=== PATIENT | female | born 2000 | race Caucasian/White ===

== ENCOUNTER 2022-12-21 21:55 | Inpatient (IN) | payer BC, MEDICAID ==
[2022-12-21] MEDS ORDERED: Lactated Ringers 1,000 ML IV ONE (22:01)
[2022-12-21] MEDS ORDERED: PITOCIN 30 UNITS/ LR 500 ML 500 ML IV ONE (22:01)
[2022-12-21] MEDS ORDERED: STADOL 2 MG IV PRN (22:06)
[2022-12-21] MEDS ORDERED: Zofran 4 MG/2 ML VIAL IV PRN (22:06)
[2022-12-21] MEDS ORDERED: PITOCIN 30 UNITS/ LR 500 ML 30 UNITS/500 ML PLAST..BAG IV SCH (22:15)
[2022-12-21] MEDS ORDERED: Anucort-HC SUPPOSITORY PR PRN (22:17)
[2022-12-21] MEDS ORDERED: NORCO 5/325 MG PO PRN (22:17)
[2022-12-21] MEDS ORDERED: LANSINOH 40 GM TOP PRN (22:17)
[2022-12-21] MEDS ORDERED: TUCKS TP PRN (22:17)
[2022-12-21] MEDS ORDERED: Dulcolax 10 MG SUPP PR PRN (22:17)
[2022-12-21] MEDS ORDERED: CORTISONE 1% CREAM TP PRN (22:17)
[2022-12-21] MEDS ORDERED: Dermoplast Spray TP PRN (22:17)
[2022-12-21] MEDS ORDERED: Ambien 10 MG PO PRN (22:17)
[2022-12-21] MEDS ORDERED: Mylicon 80MG PO PRN (22:17)
[2022-12-21] MEDS ORDERED: Lactated Ringers 1,000 ML IV SCH (22:30)
[2022-12-21] MEDS ORDERED: XYLOCAINE 1% HCL 20 ML MDV ONE (22:43)
[2022-12-21] MEDS ORDERED: XYLOCAINE 1% HCL 20 ML MDV IJ PRN (23:00)
[2022-12-21] MEDS: TYLENOL EXTRA STRENGTH 500 MG PO PRN (23:27)
[2022-12-21] MEDS: MOTRIN 400 MG PO PRN (23:27)
[2022-12-22 00:14] LABS: BASOPHIL % 0.1 % (0.0-0.4); Basophil (Absolute #) 0.02 x10^3/uL (0-0.4); Eosinophil % 0.1 % (0.00-5.0); Eosinophil (Absolute #) 0.01 x10^3/uL (0-0.5); Hematocrit 31.8 % (35-47); Hemoglobin 10.3 g/dL (12.0-16.0); IMMATURE GRAN # 0.08 x10^3u/L (0.00-0.03); IMMATURE GRAN % 0.5 % (0.00-0.4); Lymphocyte (Absolute #) 1.46 x10^3/uL (1.0-4.6); Mean Cell Volume 89.8 fL (78-100); Mean Corpuscular Hemoglobin 29.1 pg (26-32); Mean Corpuscular Hgb Concent. 32.4 g/dL (32-36); Mean Platelet Volume 9.5 fL (7.5-11.0); Monocyte (Absolute #) 0.78 x10^3/uL (0.0-1.3); Monocytes % 4.8 % (0.0-12.0); Neutrophil % 85.5 % (36.0-66.0); Platelet Count 324 x10^3/uL (150-450); Red Blood Count 3.54 x10^6/uL (4.1-5.4); Red Cell Distribution Width 12.1 % (11.5-14.0); White Blood Count 16.2 x10^3/uL (4.0-10.5)
[2022-12-22 01:06] LABS: ABO TYPING A; RH TYPING NEGATIVE
[2022-12-22 01:07] LABS: Antibody Screen POSITIVE (NEGATIVE)
[2022-12-22] MEDS: MOTRIN 400 MG PO PRN ×2 (05:33→12:36)
[2022-12-22] MEDS: TYLENOL EXTRA STRENGTH 500 MG PO PRN ×2 (05:33→21:01)
[2022-12-22] MEDS: FERREX 150 PO SCH (10:43)
[2022-12-22] MEDS: Docusate Sodium 100 MG PO SCH ×2 (10:43→21:01)
[2022-12-22 12:31] LABS: Absolute Neutrophil Ct (ANC) 7.29 x10^3/uL (1.4-6.9); BASOPHIL % 0.2 % (0.0-0.4); Basophil (Absolute #) 0.02 x10^3/uL (0-0.4); Eosinophil % 0.2 % (0.00-5.0); Eosinophil (Absolute #) 0.02 x10^3/uL (0-0.5); Hematocrit 30.1 % (35-47); Hemoglobin 9.8 g/dL (12.0-16.0); IMMATURE GRAN # 0.04 x10^3u/L (0.00-0.03); IMMATURE GRAN % 0.4 % (0.00-0.4); Lymphocyte (Absolute #) 2.49 x10^3/uL (1.0-4.6); Lymphocytes % 23.1 % (24.0-44.0); Mean Cell Volume 89.6 fL (78-100); Mean Corpuscular Hemoglobin 29.2 pg (26-32); Mean Corpuscular Hgb Concent. 32.6 g/dL (32-36); Mean Platelet Volume 9.4 fL (7.5-11.0); Monocyte (Absolute #) 0.92 x10^3/uL (0.0-1.3); Monocytes % 8.5 % (0.0-12.0); Neutrophil % 67.6 % (36.0-66.0); Platelet Count 320 x10^3/uL (150-450); Red Blood Count 3.36 x10^6/uL (4.1-5.4); Red Cell Distribution Width 12.4 % (11.5-14.0); White Blood Count 10.8 x10^3/uL (4.0-10.5)
[2022-12-23 03:34] VITALS: O2SAT 98
[2022-12-23] MEDS: FERREX 150 PO SCH (08:49)
[2022-12-23] MEDS: Docusate Sodium 100 MG PO SCH (08:49)
[2022-12-23] MEDS: MOTRIN 400 MG PO PRN (08:54)
--- NOTE | 2022-12-23 09:34 | PCM.DS ---
Discharge Summary Date of Admission: 12/21/22 21:55 Admitting Physician: LANEY TONY Consults: Consults on Case 12/21/22 22:18 Notify Physician ROUTINE 12/22/22 09:00 Navigation ONCE Primary Care Provider: KARIS FELIZ Allergies Allergies No Known Drug Allergies Allergy (Verified 10/08/21 12:16) Hospital Summary - Hospital Course Hospital Course: patient arrived in spontaneous labor at 38 2/7 wks, uncomplicated with second degree perineal laceration repair. , mild lochia, well bonded with [place] - Vitals & Intake/Output Vital Signs: Vital Signs Temperature 98.0 F 12/23/22 02:00 Pulse Rate 67 12/23/22 02:00 Respiratory Rate 16 12/23/22 02:00 Blood Pressure 99/53 12/23/22 02:00 O2 Sat by Pulse Oximetry 98 12/23/22 02:00 Intake & Output: Intake & Output 12/20/22 12/21/22 12/22/22 12/23/22 11:59 11:59 11:59 11:59 Intake Total 800 Balance 800 Weight 77.111 kg - Lab Result Diagrams: 12/22/22 12:28 Lab Results-Last 24 Hrs: Lab Results-Last 24 Hours 12/22/22 Range/Units 12:28 WBC 10.8 H (4.0-10.5) x10^3/uL RBC 3.36 L (4.1-5.4) x10^6/uL Hgb 9.8 L (12.0-16.0) g/dL Hct 30.1 L (35-47) % MCV 89.6 (78-100) fL MCH 29.2 (26-32) pg MCHC 32.6 (32-36) g/dL RDW 12.4 (11.5-14.0) % Plt Count 320 (150-450) x10^3/uL MPV 9.4 (7.5-11.0) fL Gran % 67.6 H (36.0-66.0) % Immature Gran % (Auto) 0.4 (0.00-0.4) % Nucleat RBC Rel Count 0.0 (0.00-0.1) % Eos # (Auto) 0.02 (0-0.5) x10^3/uL Immature Gran # (Auto) 0.04 H (0.00-0.03) x10^3u/L Absolute Lymphs (auto) 2.49 (1.0-4.6) x10^3/uL Absolute Monos (auto) 0.92 (0.0-1.3) x10^3/uL Absolute Nucleated RBC 0.00 (0.00-0.01) x10^3u/L Lymphocytes % 23.1 L (24.0-44.0) % Monocytes % 8.5 (0.0-12.0) % Eosinophils % 0.2 (0.00-5.0) % Basophils % 0.2 (0.0-0.4) % Absolute Granulocytes 7.29 H (1.4-6.9) x10^3/uL Basophils # 0.02 (0-0.4) x10^3/uL Discharge Exam General Appearance: no apparent distress Neurologic Exam: alert, oriented x 3 Respiratory Exam: normal breath sounds, lungs clear, No respiratory distress Cardiovascular Exam: regular rate/rhythm, normal heart sounds Gastrointestinal/Abdomen Exam: soft, No tenderness, No mass Skin Exam: normal color, warm, dry Final Diagnosis/Problem List - Final Discharge Diagnosis/Problem (1) Spontaneous vaginal delivery Current Visit: No Status: Acute Code(s): O80 - ENCOUNTER FOR FULL-TERM UNCOMPLICATED DELIVERY (2) Second degree perineal laceration during delivery Current Visit: Yes Status: Acute Code(s): O70.1 - SECOND DEGREE PERINEAL LACERATION DURING DELIVERY - Discharge Disposition: Home, Self-Care Condition: Stable Prescriptions: Continue Famotidine 20 mg [Pepcid 20 MG] 20 tab PO HS PRN PRN PRN Reason: Indigestion Vits W-Ca,Fe,FA(<1Mg) [] 1 tablet PO QHS Discontinued Aspirin EC 81 mg [Ecotrin 81 mg] 81 mg PO DAILY Follow up with: LANEY TONY MD [ACTIVE STAFF] - 6 weeks
[2022-12-23 14:31] VITALS: BP 106/58; PULSE 89
== END 2022-12-23 12:25 | disposition home or self-care (01) | DRG 807 ==
LOC: OBSVTOIN 21:55 → UNDOADMOB 21:55 → OB 21:55 → INTOOBSV 22:00 → OBSVTOIN 22:00
PROVIDERS: ADMIT Family Medicine; ATTEND Family Medicine
PROC: 10E0XZZ Delivery of Products of Conception, External Approach (ICD-10-PCS; principal; 2022-12-21)
PROC: 0KQM0ZZ Repair Perineum Muscle, Open Approach (ICD-10-PCS; 2022-12-21)
DX: O70.1 Second degree perineal laceration during delivery (principal); Z37.0 Single live birth; O69.81X0 Labor and delivery complicated by cord around neck, without compression, not applicable or unspecified; Z3A.38 38 weeks gestation of pregnancy; Z20.828 Contact with and (suspected) exposure to other viral communicable diseases
CPT/HCPCS: 36415; 85025; 86850; 86870; 86900; 86901; J2590; A9270-GY

== ENCOUNTER 2023-01-19 10:00 | Day surgery (SDC) | payer BC, MEDICAID ==
--- NOTE | 2023-01-19 08:20 | HP ---
DATE OF SURGERY: 01/19/2023 HISTORY OF PRESENT ILLNESS: The patient is a 22-year-old who had childbirth with painful external thrombosed hemorrhoid that is persistent not improving, swelling and aches. She was not having bleeding on the office visit. She is interested in considering excisional therapy. PAST MEDICAL HISTORY: Anemia, amenorrhea in the past. PAST SURGICAL HISTORY: Denied any prior hemorrhoid surgery in the past. MEDICATIONS: Hydrocortisone cream. Hydrocodone. ALLERGIES: NKDA. FAMILY HISTORY: Diverticular disease. SOCIAL HISTORY: No smoking or alcohol abuse. REVIEW OF SYSTEMS: Fourteen systems reviewed. No chest pain or palpitations. Other systems negative or noncontributory as above and per preadmission questionnaire. PHYSICAL EXAMINATION: GENERAL: No acute distress. HEENT: Sclerae nonicteric. EOMI. Oral mucous membranes moist. NECK: No JVD. CHEST: Equal excursion, nonlabored breathing. CVS: Regular rate and rhythm. ABDOMEN: Soft. EXTREMITIES: No significant edema. NEURO: Alert, oriented, moving extremities symmetrically. RECTAL: Small, thrombosed external hemorrhoid. No spontaneous drainage currently. PSYCH: Appropriate mood and affect. SKIN: Dry. IMPRESSION: Thrombosed external hemorrhoids. Discussed options, had a little more time and wanting to proceed with excisional therapy. General risk of bleeding or infection, progression of hemorrhoid disease, possible no improvement in pain, possible chronic aches and pains, risk of sphincter spasm or irritability, remote risk of sphincter dysfunction, possible development of skin tags, edema of the excision site, risk of deep vein thrombosis, pulmonary embolism or pneumonia or anesthesia but not limited to. At this point, she wanted to reserve time for excisional hemorrhoidectomy thrombosed hemorrhoid as an outpatient and decide if it has improved enough before we go to that. She understands the significant pain with this procedure but not limited to. She will either need a bowel prep the night before or enema right prior to the procedure.
[~2023-01-19 10:00] MED LIST: Reglan 10 MG/2 ML IV ONE; Transderm Scop 1.5MG Patch TOP ONE
[2023-01-19] MEDS ORDERED: ANUSOL-HC 2.5% CREAM 30 GM TOP ONE (10:01)
[2023-01-19] MEDS ORDERED: EXPAREL 133 MG/10 ML VIAL IJ ONE (10:01)
[2023-01-19] MEDS ORDERED: MEFOXIN 2 GM PREMIX** 2 GM/50 ML ML IV ONE (11:34)
[2023-01-19] MEDS ORDERED: Lactated Ringers 1,000 ML IV ONE (11:34)
[2023-01-19 11:47] LABS: HCG URINE TEST NEGATIVE (NEGATIVE)
[2023-01-19 12:17] VITALS: RESP 18
[2023-01-19] MEDS ORDERED: Lactated Ringers 1,000 ML IV SCH (12:30)
[2023-01-19] MEDS ORDERED: BRIDION 200MG/2ML IV ONE ×2 (12:51→13:09)
[2023-01-19] MEDS ORDERED: MEFOXIN 2 GM PREMIX** 2 GM/50 ML ML IV SCH (13:00)
[2023-01-19] MEDS ORDERED: Zofran 4 MG/2 ML VIAL ONE (13:09)
[2023-01-19] MEDS ORDERED: Xylocaine-Mpf 2% 5 Ml Vial ONE (13:09)
[2023-01-19] MEDS ORDERED: Decadron 4 MG INJ ONE (13:09)
[2023-01-19] MEDS ORDERED: Zemuron 100 MG/10 ML ONE (13:09)
[2023-01-19] MEDS ORDERED: TORAdol 30 mg Injection ONE (13:09)
[2023-01-19] MEDS ORDERED: DIPRIVAN 200 MG/20 ML IV ONE (13:09)
[2023-01-19] MEDS ORDERED: SUBLIMAZE 100 MCG/2 ML ONE ×2 (13:10→13:59)
[2023-01-19] MEDS ORDERED: Hydromorphone 1 mg/ml Injection ONE (14:04)
[2023-01-19] MEDS ORDERED: NORCO 5/325 MG PO ONE (14:48)
[2023-01-19] MEDS ORDERED: NORCO 5/325 MG ONE (14:49)
[2023-01-19 15:05] VITALS: TEMP 97.4
[2023-01-19 15:34] VITALS: O2SAT 97
[2023-01-19 15:48] VITALS: BP 91/68; PULSE 66
--- NOTE | 2023-01-20 10:45 | OP ---
SURGERY DATE/TIME: 01/19/2023 3208 PREOPERATIVE DIAGNOSES: 1) Internal and external hemorrhoid disease, failed conservative management. 2) Thrombosed external hemorrhoids. POSTOPERATIVE DIAGNOSES: 1) Internal and external hemorrhoid disease, failed conservative management. 2) Thrombosed external hemorrhoids. 3) Superficial fissure. PROCEDURE: Exam under anesthesia with internal and external hemorrhoidectomy. SURGEON: Dr. Ramon Cortez. ANESTHESIA: General. ESTIMATED BLOOD LOSS: Minimal. INDICATIONS: As noted above. Risks and benefits explained in detail and not limited to and consent obtained. DESCRIPTION OF PROCEDURE AND FINDINGS: The patient is taken to the operating room. General anesthesia induced. She reported that she had taken the bowel prep. After she is prepped and draped in the usual sterile fashion, she had a large amount of stool up in the rectum. She did have evidence of a posterior anal fissure as well as the area where she had the thrombosed external component seemed to be a little smaller. She is still having pain and wanting this excised. She recently had a prominent papilla a little bit more towards the left posterior position this warranted excision as well to evaluate and make sure distally there was not any dysplasia or other changes. Prior to putting the retractors in, Exparel was injected around the perirectal area. At this point the half-cole retractors were inserted. She had a large amount of stool. It took a large amount to irrigation with copious amounts of saline irrigating the stool out of the rectum as well as possible to decrease the overall risk of infection. Once this was done, the right anterior did not seem to be any significant hemorrhoid disease warranting excision. The left posterior lateral had more hypertrophy and the papilla warranted excision. She did not seem to have thrombosed external on the left side. The right posterior seemed to be where she had the thrombosed external component was a little bit smaller but she is still having pain. She desired excision at this time. Therefore starting with this, small spindle shaped segment of mucosa excising out around this small thrombosed segment of hemorrhoid out towards the perianal skin. The hemorrhoid was carefully dissected off of the internal sphincter and passed off for pathology. Controlled hemostasis with running 3-0 Monocryl. The patient did have a posterior fissure. Otherwise, she had slight hypertrophy just a little more left posterior. It was felt this warranted excision for definitive path for other etiology, metaplasia or dysplasia. It was carefully excised with normal rectal mucosa also closed with 3-0 Monocryl. There was a little bit of ooze on the external part of this fissure so Monocryl passed back for hemostasis control. Good hemostasis noted. Copious amount of irrigation irrigating clear. Gelfoam and Anusol was placed in the rectal canal and the dressing applied. The patient tolerated the procedure well. Fissure repair had been explained that this is one of the procedures we do and she will decide if she wants to proceed with this given the fissure component and poor prep it will not take much longer to heal. She can take sitz baths two to three times a day. Write her for some oral pain medication and also Cipro and Flagyl given her poor prep. I discussed the findings with the family out in the waiting room.
== END 2023-01-19 15:55 | disposition home or self-care (01) ==
LOC: SDC 10:00 → EDSTATUS 10:23 → SDC 15:55
PROVIDERS: ATTEND Surgery
DX: K64.5 Perianal venous thrombosis (principal); K60.2 Anal fissure, unspecified; K64.8 Other hemorrhoids
CPT/HCPCS: 81025; J0694; J1100; J1170; J1885; J2405; J2704; J3010; A9270-GY

== ENCOUNTER 2025-01-21 17:24 | Emergency (ER) | payer BC, OTHER ==
--- NOTE | 2025-01-21 17:41 | ERPHSYRPT ---
- History of Present Illness Source: patient Exam Limitations: no limitations Physician History: Patient has a injury to her right ankle. Is an inversion injury. She has pain distal to the lateral malleolus. No other traumas. She is able to ambulate but is painful. Rest ice and elevate makes it better.No other traumas Occurred: just prior to arrival Quality: aching Allergies/Adverse Reactions: No Known Drug Allergies Allergy (Verified 11/22/24 06:47) Home Medications: Progesterone, Micronized [Progesterone] 200 mg PO DIRECTIONS UNKNOWN 11/22/24 [History] Hx Tetanus, Diphtheria Vaccination/Date Given: No Hx Influenza Vaccination/Date Given: No Hx Pneumococcal Vaccination/Date Given: No Travel Risk - Emerging Infectious Disease Are you exhibiting symptoms associated with any current EIDs: No - Review of Systems Constitutional: No Symptoms Eyes: No Symptoms Respiratory: No Symptoms Cardiac: No Symptoms Musculoskeletal: Injury Skin: No Symptoms Neurological: No Symptoms - Past Medical History Neurological History: No Pertinent History Cardiac History: Other Respiratory History: No Pertinent History Endocrine Medical History: No Pertinent History Musculoskeletal History: Other Other Medical History: 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 PT. HAS HAD FALLS W/ CAMARGO AND FEELS BETTER. 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 KNEE PN TENDS TO HYPEREXTEND. - Past Surgical History Past Surgical History: Yes Neuro Surgical History: No Pertinent History Cardiac: No Pertinent History Respiratory: No Pertinent History Gastrointestinal: Hemorrhoidectomy Genitourinary: No Pertinent History Musculoskeletal: No Pertinent History Female Surgical History: No Pertinent History Other Surgical History: wisdom teeth removed. Hemorrhoidectomy with Anal fissure repair 01/19/2023. laparoscopy - Female History Hx Last Menstrual Period: 11/03/2024 - Social History Smoking Status: Never smoker Exposure to second hand smoke: No Drug Use: none - Social Determinants of Health Will the patient participate in the screening: Yes Do you worry about a steady place to live?: No In the past 12 months,have you had to go without utilities?: No Transportation Issues: No Has anyone in your support network made you feel unsafe?: No Have you or anyone in your house had to go w/o enough food: No - Nursing Vital Signs Nursing Vital Signs: Initial Vital Signs Blood Pressure 139/88 01/21/25 17:30 O2 Sat by Pulse Oximetry 100 01/21/25 17:30 Pain Scale Pain Intensity 7 - Physical Exam General Appearance: no apparent distress Hips Exam: bilateral: non-tender, normal inspection, normal range of motion Legs Exam: bilateral leg: non-tender, normal inspection, normal range of motion, no evidence of injury Knees Exam: bilateral knee: non-tender, normal inspection, normal range of motion, no evidence of injury Ankle Exam: right ankle: bone tenderness, limited range of motion, pain, soft tissue tenderness, swelling Foot Exam: bilateral foot: non-tender, normal inspection, normal range of motion, no evidence of injury Ordered Tests: Active Orders 24 hr Category Date Time Status ANKLE (3 VIEWS) Stat Exams 01/21/25 17:39 Taken - Progress Progress: unchanged Progress Note: X-rays times interpreted by me. There is no acute fractures. There was some edema in the lateral malleolar area and the soft tissue swelling. I am going to give her some crutches. Have her do activity as tolerated and rest ice and elevate Tylenol and Advil as needed and an Ad wrap. 01/21/25 18:21 - Departure Departure Disposition: Home Clinical Impression: Ankle sprain Condition: Stable Critical Care Time: No Referrals: LANEY TONY MD [Primary Care Provider, [facility]] - Follow up/PCP as directed Instructions: Ankle sprain - ED discharge instructions
[2025-01-21 17:42] VITALS: RESP 16; TEMP 98.1
[2025-01-21 18:27] VITALS: BP 120/76; PULSE 63; O2SAT 98
--- NOTE | 2025-01-21 21:02 | XRAY ---
Indication: Trauma. Comparison: None 3 view right ankle demonstrates tiny posterior heel spur and mild anterolateral soft tissue swelling. No other bony, articular, or soft tissue abnormalities.
== END 2025-01-21 18:34 | disposition home or self-care (01) ==
LOC: ED 17:24
DX: S93.401A Sprain of unspecified ligament of right ankle, initial encounter (principal); X50.0XXA Overexertion from strenuous movement or load, initial encounter; Z79.899 Other long term (current) drug therapy